=== PATIENT | female | born 1990 | race Two or more races ===

== ENCOUNTER 2018-02-01 19:35 | Emergency (ER) | payer MEDICAID, OTHER ==
[~2018-02-01] VITALS: Ht 162.6 cm; Wt 59.0 kg
--- NOTE | 2018-02-01 19:35 | NUR ---
BIB MOTHER; RIGHT PELVIC PAIN SINCE SAT, COMES AND GOES. VSS NO ACUTE DISTRESS AT THIS TIME. BREATHING PATTERN WNL WITH ADEQUATE CHEST RISE AND FALL. WILL CONTINUE TO MONITOR FOR ANY CHANGES DURING THE SHIFT.
--- NOTE | 2018-02-01 19:36 | NUR ---
SANJEEV MOORE AT BEDSIDE
--- NOTE | 2018-02-01 20:12 | NUR ---
BLOOD SENT TO LAB WITH CLIMATOLOGIST
--- NOTE | 2018-02-01 20:12 | NUR ---
PELVIC EXAM DONE BY SANJEEV MOORE
[2018-02-01 20:15] LABS: BASOPHILS # (AUTO) 0.1 /CMM (0.0-0.2); BASOPHILS % (AUTO) 0.8 % (0.0-2.0); EOSINOPHILS % (AUTO) 3.1 % (0.0-6.0); HEMATOCRIT 44 % (33-45); HEMOGLOBIN 15.2 g/dL (11.5-14.8); LYMPHOCYTES # (AUTO) 2.8 /CMM (0.8-4.8); LYMPHOCYTES % (AUTO) 39.3 % (20.0-44.0); MEAN CORPUSCULAR HEMOGLOBIN 31 PG (26.0-33.0); MEAN CORPUSCULAR HGB CONC 34 g/dl (31.0-36.0); MEAN CORPUSCULAR VOLUME 90 fL (82-100); MONOCYTES # (AUTO) 0.4 /CMM (0.1-1.30); MONOCYTES % (AUTO) 5.7 % (2.0-12.0); NEUTROPHILS # (AUTO) 3.6 /CMM (1.8-8.9); NEUTROPHILS % (AUTO) 51.1 % (43.0-81.0); PLATELET COUNT (AUTO) 218 /CMM (150-450); RDW COEFFICIENT OF VARIATION 11.7 (11.5-15.0); RED BLOOD CELL COUNT(AUTO) 4.96 MIL/uL (4.0-5.2); WHITE BLOOD COUNT (AUTO) 7.1 K/uL (4.3-11.0)
[2018-02-01 20:27] LABS: INR 0.95 (0.85-1.15)
[2018-02-01 20:29] LABS: ALBUMIN 4.2 g/dL (3.4-5.0); BILIRUBIN,DIRECT 0.1 mg/dL (0.0-0.2); BILIRUBIN,TOTAL 0.3 mg/dL (0.2-1.0); CALCIUM, SERUM 9.1 mg/dL (8.5-10.1); CREATININE 0.6 mg/dL (0.6-1.3); POTASSIUM 3.5 mmol/L (3.5-5.1); TOTAL PROTEIN, SERUM 7.2 g/dL (6.4-8.2)
[2018-02-01 20:36] LABS: APPEARANCE,URINE Clear (CLEAR); BILIRUBIN,URINE Negative (NEGATIVE); BLOOD, URINE Trace-intact Ery/uL (NEGATIVE); COLOR,URINE Yellow (YELLOW); KETONES,URINE Negative (NEGATIVE); LEUKOCYTE ESTERASE ,URINE Negative (NEGATIVE); NITRITE, URINE Negative (NEGATIVE); PH,URINE 7.5 (5.0-8.0); PROTEIN,URINE Negative (NEGATIVE); UGLUCOSE Negative (NEGATIVE); UROBILINOGEN,URINE 0.2 EU/dL (0.2)
[2018-02-01 20:57] LABS: BACTERIA,URINE None seen /HPF (None Seen); SQUAMOUS EPITHELIAL CELL,UR Moderate /HPF (None Seen); WBC,URINE 0-2 /HPF (0-3)
[2018-02-01 21:44] VITALS: BP 138/88
== END 2018-02-01 21:45 | disposition home or self-care (01) ==
LOC: ER 19:37
DX: R19.03 Right lower quadrant abdominal swelling, mass and lump (principal); Z98.890 Other specified postprocedural states
CPT/HCPCS: 36415; 76856; 80048; 80076; 81001; 84703; 85025; 85730; 99285; A4606; Z7610; 81000-TC

== ENCOUNTER 2021-03-11 10:44 | Emergency (ER) | payer SELFPAY ==
[~2021-03-11] VITALS: Ht 162.6 cm; Wt 59.0 kg
--- NOTE | 2021-03-11 10:44 | NUR ---
PT BIB SELF C/O ABDOMINAL PAIN FOR 2 DAYS. PT IS AAOX4, NOT IN RESPIRATORY DISTRESS, V/S STABLE, KEPT RESTED AND COMFORTABLE. WILL CONTINUE TO MONITOR.
--- NOTE | 2021-03-11 11:18 | NUR ---
AT BEDSIDE FOR EVAL.
--- NOTE | 2021-03-11 11:25 | NUR ---
IV LINE ESTABLISHED BLOOD DRAWN AND SENT TO LAB.
[2021-03-11 11:30] LABS: BILIRUBIN,URINE Negative (NEGATIVE); COLOR,URINE YELLOW (YELLOW); LEUKOCYTE ESTERASE ,URINE Negative (NEGATIVE); NITRITE, URINE Negative (NEGATIVE); PH,URINE 6.5 (5.0-8.0); PROTEIN,URINE Negative (NEGATIVE); UGLUCOSE Negative (NEGATIVE); UROBILINOGEN,URINE 0.2 EU/dL (0.2)
[2021-03-11 11:37] LABS: BASOPHILS % (AUTO) 1.1 % (0.0-2.0); HEMATOCRIT 41 % (33-45); LYMPHOCYTES # (AUTO) 1.1 K/uL (0.8-4.8); MEAN CORPUSCULAR HGB CONC 34 g/dl (31.0-36.0); MEAN CORPUSCULAR VOLUME 90 fL (82-100); MONOCYTES # (AUTO) 0.4 K/uL (0.1-1.30); MONOCYTES % (AUTO) 10.9 % (2.0-12.0); NEUTROPHILS # (AUTO) 1.7 K/uL (1.8-8.9); PLATELET COUNT (AUTO) 208 K/uL (150-450); RED BLOOD CELL COUNT(AUTO) 4.62 MIL/uL (4.0-5.2); WHITE BLOOD COUNT (AUTO) 3.4 K/uL (4.3-11.0)
[2021-03-11 11:42] LABS: BACTERIA,URINE Rare /HPF (None Seen); SQUAMOUS EPITHELIAL CELL,UR 0-2 /HPF (None Seen); WBC,URINE 0-2 /HPF (0-3)
[2021-03-11] MEDS ORDERED: CT SWABBABLE VALVE TRANS SET 1 EA INFUS.SET MC ONE (11:42)
[2021-03-11] MEDS ORDERED: IOHEXOL-300 100 ML VIAL IV ONE (11:42)
[2021-03-11] MEDS ORDERED: IV NS 0.9% 250 ML IV ONE (11:43)
[2021-03-11 11:45] LABS: CALCIUM, SERUM 9.2 mg/dL (8.5-10.1); CREATININE 0.8 mg/dL (0.6-1.3); POTASSIUM 3.9 mmol/L (3.5-5.1)
[2021-03-11 11:51] LABS: ALBUMIN 4.1 g/dL (3.4-5.0); BILIRUBIN,DIRECT 0.1 mg/dL (0.0-0.2); BILIRUBIN,TOTAL 0.3 mg/dL (0.2-1.0); TOTAL PROTEIN, SERUM 7.7 g/dL (6.4-8.2)
--- NOTE | 2021-03-11 12:11 | NUR ---
PT IS BACK FROM THE CT SCAN.
--- NOTE | 2021-03-11 13:12 | NUR ---
IV removed. Catheter intact and site benign. Pressure and 4x4 applied to site. No bleeding noted.
[2021-03-11 13:13] VITALS: BP 125/76
== END 2021-03-11 13:14 | disposition home or self-care (01) ==
LOC: ER 10:45
DX: N80.9 Endometriosis, unspecified (principal); R10.2 Pelvic and perineal pain
CPT/HCPCS: 36415; 74177; 80048; 80076; 81001; 85025; 99285; J7050; Q9967

== ENCOUNTER 2023-11-09 19:32 | Emergency (ER) | payer BC, OTHER ==
[~2023-11-09] VITALS: Ht 162.6 cm; Wt 61.2 kg
[2023-11-09 21:00] LABS: BASOPHILS # (AUTO) 0.1 K/uL (0.0-0.2); BASOPHILS % (AUTO) 0.8 % (0.0-2.0); EOSINOPHILS # (AUTO) 0.2 K/uL (0.0-0.7); EOSINOPHILS % (AUTO) 2.9 % (0.0-6.0); HEMATOCRIT 39 % (33-45); HEMOGLOBIN 13.3 g/dL (11.5-14.8); LYMPHOCYTES # (AUTO) 2.6 K/uL (0.8-4.8); LYMPHOCYTES % (AUTO) 40.4 % (20.0-44.0); MEAN CORPUSCULAR HEMOGLOBIN 31 PG (26.0-33.0); MEAN CORPUSCULAR HGB CONC 34 g/dl (31.0-36.0); MEAN CORPUSCULAR VOLUME 89 fL (82-100); MONOCYTES # (AUTO) 0.4 K/uL (0.1-1.30); MONOCYTES % (AUTO) 6.6 % (2.0-12.0); NEUTROPHILS # (AUTO) 3.2 K/uL (1.8-8.9); NEUTROPHILS % (AUTO) 49.3 % (43.0-81.0); PLATELET COUNT (AUTO) 228 K/uL (150-450); RED BLOOD CELL COUNT(AUTO) 4.33 MIL/uL (4.0-5.2); RED CELL DISTRIBUTION WIDTH 12.3 % (11.5-15.0); WHITE BLOOD COUNT (AUTO) 6.5 K/uL (4.3-11.0)
[2023-11-09 21:07] LABS: CALCIUM, SERUM 9.1 mg/dL (8.5-10.1); CREATININE 0.8 mg/dL (0.6-1.3); POTASSIUM 4.2 mmol/L (3.5-5.1)
[2023-11-09 21:18] LABS: BILIRUBIN,TOTAL 0.3 mg/dL (0.2-1.0); TOTAL PROTEIN, SERUM 7.1 g/dL (6.4-8.2)
[2023-11-09 21:48] LABS: APPEARANCE,URINE Clear (CLEAR); BILIRUBIN,URINE Negative (NEGATIVE); BLOOD, URINE Negative Ery/uL (NEGATIVE); COLOR,URINE YELLOW (YELLOW); KETONES,URINE Negative (NEGATIVE); LEUKOCYTE ESTERASE ,URINE Negative (NEGATIVE); NITRITE, URINE Negative (NEGATIVE); PROTEIN,URINE Negative (NEGATIVE); UGLUCOSE Negative (NEGATIVE); UROBILINOGEN,URINE 0.2 EU/dL (0.2)
[2023-11-09 22:20] VITALS: BP 154/98; TEMP 98.3; O2SAT 98
== END 2023-11-09 22:21 | disposition home or self-care (01) ==
LOC: ER 19:39
DX: R10.2 Pelvic and perineal pain (principal); Z90.710 Acquired absence of both cervix and uterus; K21.9 Gastro-esophageal reflux disease without esophagitis; Z88.0 Allergy status to penicillin
CPT/HCPCS: 36415; 76856-TC; 80048-TC; 80076-TC; 84702-TC; 85025-TC